=== PATIENT | female | born 1995 | race Caucasian/White ===

== ENCOUNTER 2024-11-23 00:01 | Emergency (ER) | payer BC ==
[~2024-11-23] VITALS: Ht 157.4 cm; Wt 85.7 kg
[2024-11-23] MEDS ORDERED: Amoxicillin/Clavulanate Pota 875 MG TAB PO ONE (01:00)
[2024-11-23] MEDS ORDERED: AMOX-CLAV 875-1 EACH PO (01:00)
[2024-11-23] MEDS ORDERED: ACETAMINOPHEN 325 MG TAB PO ONE (01:00)
== END 2024-11-23 01:16 | disposition home or self-care (01) ==
LOC: ED 00:01
DX: O99.512 Diseases of the respiratory system complicating pregnancy, second trimester (principal); H66.92 Otitis media, unspecified, left ear; Z3A.16 16 weeks gestation of pregnancy